=== PATIENT | female | born 1940 | race Caucasian/White ===

== ENCOUNTER → 2023-06-11 07:15 | Day surgery (SDC) | payer MEDICARE, OTHER, SELFPAY ==
[2023-06-11] MEDS: ELIQUIS 5 MG PO (07:55)
[2023-06-11 07:56] VITALS: BMI 24.5
== END ==
LOC: CATH 07:15
PROVIDERS: ATTENDING PHYSICIAN Internal Medicine Cardiovascular Disease; FAMILY PHYSICIAN Family Medicine
DX: I48.91 Unspecified atrial fibrillation (principal); I08.0 Rheumatic disorders of both mitral and aortic valves; I10 Essential (primary) hypertension; E78.00 Pure hypercholesterolemia, unspecified; G20.A1 Parkinson's disease without dyskinesia, without mention of fluctuations; Z79.01 Long term (current) use of anticoagulants
CPT/HCPCS: 92960; 93005

== ENCOUNTER 2023-06-12 23:50 | Emergency (ER) | payer MEDICARE, OTHER, SELFPAY ==
[2023-06-12 23:51] VITALS: BP 164/88
--- NOTE | 2023-06-13 00:35 | ED.GENMED ---
History of Present Illness
General
Chief Complaint: Abdominal Symptoms
Source: patient and spouse
Exam Limitations: none
Time Seen by Provider: 06/13/23 00:20
Travel History
Have you had any contact with someone who has COVID-19?: No
Do you have any symptoms of coronavirus? Fever > 100 degrees, chills, cough, shortness of breath, sore throat, loss of taste or smell, muscle aches, or headache?: No
History of Present Illness
History of Present Illness:
This is a 82 year old female that comes in with c/o nausea and abd pain. States that she has been nauseated for the past month. Sates that it would come and go at first. States that on Sunday it came back and has been constant. States that she cant
eat. Patient was here yesterday and was Cardioverted for atrial fib. States that she believed last they changed her Amiodarone. States that she has vomited once and she just can't take the nausea any more. States that she is occasionally
dizzy. Denies any fever, chills, chest pain, diarrhea, headache, urinary burning.
Past History
Past History
ED Past Medical History: Arrthythmia (Atrial fib), COPD, HTN, Hypercholesterolemia, Valvular disease and Other (Parkinson's, Herniated disc, MVP, Esophageal strictures, UTI, Eczema)
ED Past Surgical History: Gynecological (Hysterectomy), Orthopedic (Right shoulder replacement), Tonsilectomy and Urological (Bladder lift )
Social History
Tobacco: Former smoker
Alcohol: None
Drug: None
Personal:
Living: with family
Review of Systems
Review of Systems
All Other Systems: ROS reviewed and negative except as documented in HPI and ROS
Constitutional: Reports no symptoms; Denies fever or chills
EENT: Reports no symptoms
Respiratory: Reports trouble breathing; Denies cough
ABD/GI: Reports abdominal pain, nausea and vomiting (Once); Denies diarrhea
: Reports no symptoms; Denies dysuria, frequency or urgency
Musculoskeletal: Reports no symptoms
Skin: Reports no symptoms
Neurological: Reports dizzy (occasional); Denies headache
Psychiatric: Reports no symptoms
Phy Exam
General Physical Exam
General Presentation: mild distress
General age: appears stated age
General Skin: warm and dry
General Habitus: elderly
General Mental: alert
General Hydration: dry mucous membranes
ENT Exam
ENT Exam: TM's normal, pharynx normal and neck supple
Eye Exam
Eye Exam: EOMI
Cardiovascular Exam
Cardiovascular Exam: regular rate/rhythm and normal peripheral pulses
Pulmonary Exam
Pulmonary Exam: no respiratory distress, chest non tender, no rhonchi, no wheezing, no cough and other (Very fine crackles at bases)
Gastrointestinal Exam
Gastrointestinal Exam: normal bowel sounds, soft, no organomegaly, no pulsatile mass, non distended and tender (Generalized tenderness with palpation R>L discomfort)
Musculoskeletal Exam
Musculoskeletal Exam: full ROM and edema (Slight +1 pitting edema lower legs)
Skin Exam
Skin Exam: normal color, warm/dry, no rash and no petechia
Psychiatric Exam
Psychiatric Exam: normal mood/affect
Course
Orders/Labs/Results
Orders:
Orders
06/13/23 00:33
Ondansetron Injectable [Zofran] 4 mg IV NOW STA
06/13/23 00:34
0.9% Sodium Chloride 1000 ml [Nss] 1,000 ml IV BOLUS
06/13/23 00:38
Iohexol [Omnipaque] See Protocol PO NOW STA
06/13/23 00:40
CR Chest - 2 Views Urgent
Comment:
Reason For Exam: SOB
06/13/23 01:06
Complete Blood Count/With Diff Urgent
Comprehensive Metabolic Panel Urgent
Lipase Urgent
06/13/23 01:56
Ct Chest/Abd/Pel Angio W/Wo Iv Urgent
Comment: Incorrect order placed by Marguerite mccormick to modify
Reason For Exam: Abnormal Chest x-ray, abd pain, nausea,
06/13/23 03:25
Urinalysis Reflex To Culture Urgent
Date Specimen was Collected: 06/13/23
Time Specimen was Collected: 03:24
Urine Microscopic Reflex Cult Urgent
Abnormal Lab Results
06/13/23 06/13/23
01:06 03:25
RDW 16.1 H %
(11.5-14.5)
Absolute Lymphs (auto) 0.8 L 10^3/uL
(1.2-3.4)
Absolute Monos (auto) 0.8 H 10^3/uL
(0.1-0.6)
Neutrophils % 77.4 H %
(42.2-75.2)
Lymphocytes % 10.5 L %
(20.5-51.1)
Monocytes % 10.1 H %
(1.7-9.3)
Sodium 132 L mmol/L
(135-145)
BUN 24 H mg/dl
(7-17)
Total Protein 5.6 L g/dl
(6.3-8.2)
Leukocyte Esterase Rfl Trace A
(Negative)
Urine Bacteria (Reflex) Few A
(Negative)
06/13/23 01:06
06/13/23 01:06
Sodium slightly low. Dehydration. Total protein low. Urine negative for infection.
Vital Signs
Initial and Last Documented VS:
Initial Vital Signs
Temp Pulse Resp BP Pulse Ox
97.4 F 64 18 164/88 93
06/12/23 23:51 06/12/23 23:51 06/12/23 23:51 06/12/23 23:51 06/12/23 23:51
Last Documented Vital Signs
Temp Pulse Resp BP Pulse Ox
97.4 F 61 19 149/82 92
06/12/23 23:51 06/13/23 03:30 06/13/23 03:30 06/13/23 03:00 06/13/23 03:30
Chain Testing Machine Operator consulted with Physician
Chain Testing Machine Operator consulted with physician?: Yes
Name of Physician Consulted: DR. Srinivasan
MDM/Problems Addressed
Differential Diagnosis Includes:
Diverticulitis, Appendicitis
MDM/Problems Addressed:
This is a 82 year old female that comes in with c/o nausea for the past month and abd pain. States that at first the nausea would come and go. Now since Sunday she has been nauseated and can't eat. States that she has abd pain and SOB. Patient was
cardioverted yesterday for atrial fib.
Will check labs. CT abd/pelvis, chest x-ray and medicate with Zofran for the nausea.
Back into see patient. Explained that her chest x-ray appears abnormal. Concern for widening of the aorta. Will get Chest/Abd/Pelvis CTA. Patient states that her nausea is gone.
CT cont- given suggestion of focus of fat. Suggest comparison with prior studies. Hysterectomy. Suggestion of a small cystocele. Bones and soft tissues: Superior endplate compression deformity at T3, uncertain chronicity but favored to be chronic.
Degenerative changes and mild scoliosis in the thoracolumbar spine. Right shoulder replacement. Mild generalized body wall edema. Small fat-periumbilical hernia.
Back into see patient and . Explained that her CT was negative for anything acute. There is a small fat filled umbilical hernia. There is no bowel obstruction or diverticulitis. Feel that patient nausea may be due to her medications.
Encouraged patient to try and eat before taking her medications. Will give prescription for Zofran and patient to follow up with the family doctor and her [employer]. Patient to return with any concerns.
Chronic conditions affecting care:
History of UTI,
Acute Exacerbation and/or Progression of Chronic Illness:
NA
*Radiology
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 No evidence for aortic dissection, intramural hematoma, or rupture. Moderate atherosclerotic disease. Stenosis of the
celiac artery origin. No evidence for mesenteric artery occlusion. Chest- No evidence for pulmonary ), all reviewed NAD by ED Provider (CT chest cont- No pulmonary embolism. Small pleural effusions. Scattered atelectasis. Abd/pelvis-Colonic
diverticulosis without evidence for acute diverticulitis. No bowel obstruction or free air. No definite findings of bowel ischemia, although presence of enteric contrast limits evaluation. ) and other (CT cont-Hypodense lesions in the liver and
kidneys, imcompletely characterized but most are suggestive of cyst. Mildly complex appearing cystic lesion in the left upper quadrant, possibly arising from the left adrenal gland or pancreatic tail, measuring up to 2.6cm. Could represent a
myelolipoma )
*Pulse Oximetry
Patient hypoxic: no
*EKG
Interpreted by ED Provider?: NA
Rate: EKG- N/A
*Candle Maker Interpretation
Rate: Candle Maker- N/A
*Critical Care Note
Total Time (30-74mins, 75-104mins- exclusive of procedures): Not Applicable
ED Attending Note
-
Portions of this chart may have been created with voice recognition software.� Occasional wrong word or��sound alike� substitutions may have occurred due to the inherent limitations of voice recognition software.
Discharge Plan
Departure
Patient Disposition: Home (Routine Discharge)
Date of Disposition: 06/13/23
Time of Disposition: 03:36
Patient with high blood pressure during this ER visit?: Yes
Condition: Good
Covid-19: Not Applicable
Discharge Problem:
Abdominal pain, Nausea
Instructions: Nausea and Vomiting, Adult (DC), BLOOD PRESSURE
Prescriptions:
New
ondansetron 4 mg tablet,disintegrating
4 mg PO Q8H PRN (Reason: nausea and vomiting) Qty: 7 0RF
No Action
atorvastatin 10 MG tablet
10 mg PO QPM
cholecalciferol (vitamin D3) [Vitamin D3] 400 UNITS tablet
400 unit PO DAILY
multivitamin with folic acid [Tab-A-Alexander] 1 TABLET tablet
1 tab PO DAILY
[place]-3 1 EACH capsule,delayed release(DR/EC)
1 ea PO DAILY
potassium chloride 20 MEQ tablet extended release
20 meq PO DAILY
losartan 50 mg tablet
50 mg PO QPM
carbidopa-levodopa 25-100 mg tablet
1 tab PO TID
Calcium Magnesium 500 mg calcium -250 mg Tablet
2 tab PO DAILY
Anoro Ellipta 62.5-25 mcg/actuation blister with device
1 inh inhalation PRN PRN (Reason: sob)
sertraline 25 mg Tablet
25 mg PO DAILY
metoprolol succinate 50 mg tablet extended release 24 hr
50 mg PO DAILY
methenamine hippurate [Hiprex] 1 gram Tablet
1 g PO BID Qty: 0 0RF
amiodarone 200 mg Tablet
200 mg PO BID
ascorbic acid (vitamin C) [Vitamin C] 500 mg Capsule, Extended Release
500 mg PO DAILY
esomeprazole magnesium [Nexium] 20 mg Capsule,Delayed Release(Dr/Ec)
20 mg PO DAILY
Rx Instructions:
not sure of amt
Eliquis 5 mg tablet
5 mg PO BID
Referrals:
Olegario Coleman DO [Family Provider] - Follow up in 2-3 days
Ryan Alcantar MD [Active] - Follow up in 2-3 days
Activity Restrictions/Additional Instructions:
As discussed. your blood work shows a little dehydration. You have been given IV fluids here,. Your CT was negative for any acute process. You have a small umbilical hernia that is fat filled. There is no bowel obstruction or diverticulitis. Your
nausea is most likely coming from your Medication. Please try and eat before taking your medication to help decrease the nausea. You have had a prescription for Zofran sent to your Pharmacy for any further nausea. Please follow up with the family
doctor and your [employer] for further evaluation. IF YOU HAVE VOMITING, INCREASED OR CHANGING ABD PAIN, OR YOU HAVE ANY OTHER CONCERNS PLEASE RETURN TO THE EMERGENCY ROOM.
Interventions
Interventions:
*Risk Screen - Suicide Last Done: 06/12/23 23:51
*General Assessment Last Done: 06/13/23 01:05
*Neglect/Abuse Screening Last Done: 06/12/23 23:51
ED- Fall Risk Assessment Last Done: 06/13/23 01:05
GA-Ifzecc-Lsaqpbpebj Assessment Last Done: 06/13/23 03:05
[2023-06-13 00:37] VITALS: BMI 24.6
[2023-06-13 00:38] VITALS: BP 160/88
[2023-06-13 01:00] VITALS: BP 163/85
[2023-06-13] MEDS: ZOFRAN 4 MG IV (01:10)
[2023-06-13] MEDS: NSS 1000 IV (01:10)
[2023-06-13] MEDS: OMNIPAQUE 50 ML PO (01:10)
[2023-06-13 01:14] LABS: % Basophils 0.4 % (0-2); % Eosinophils 1.1 % (0-6); % Immature Granulocytes 0.5 % (0-0.5); % Lymphocytes 10.5 % (20.5-51.1); % Monocytes 10.1 % (1.7-9.3); % Neutrophils 77.4 % (42.2-75.2); Absolute Eosinophils 0.1 10^3/uL (0-0.7); Absolute Lymphocytes 0.8 10^3/uL (1.2-3.4); Absolute Monocytes 0.8 10^3/uL (0.1-0.6); Absolute Neutrophils 5.9 10^3/uL (1.4-6.5); Hematocrit 37.9 % (37.0-47.0); Mean Corp Hgb Conc. 34.3 g/dL (33.0-37.0); Mean Corpuscular Hgb 28.4 pg (27.0-31.0); Mean Corpuscular Volume 82.9 fL (81.0-99.0); Mean Platelet Volume 9.4 fL (7.4-10.4); Nucleated Red Blood Cells % 0 %; Platelet Count 207 10^3/uL (130-400); Red Blood Cell Count 4.57 10^6/uL (4.20-5.40); Red Cell Dist. Width 16.1 % (11.5-14.5); White Blood Cell Count 7.6 10^3/uL (4.8-10.8)
[2023-06-13 01:59] LABS: ALT (SGPT) 17 U/L (0-35); AST (SGOT) 21 U/L (14-36); Albumin 3.5 g/dl (3.5-5.0); Alkaline Phosphatase 62 U/L (38-126); Blood Urea Nitrogen 24 mg/dl (7-17); Calcium 9.2 mg/dl (8.4-10.2); Carbon Dioxide 23 mmol/L (22-30); Chloride 103 mmol/L (98-107); Estimated Creatinine Clearance 57 ml/min; Glucose 93 mg/dl (70-99); Lipase 32 U/L (23-300); Potassium 3.8 mmol/L (3.5-5.1); Sodium 132 mmol/L (135-145); Total Bilirubin 1.3 mg/dl (0.2-1.3); Total Protein 5.6 g/dl (6.3-8.2); eGFR > 60.00
[2023-06-13 02:00] VITALS: BP 162/86
[2023-06-13 03:00] VITALS: BP 149/82
[2023-06-13 03:38] LABS: Urine Albumin Negative (Neg - Trace); Urine Bilirubin Negative (Negative); Urine Character Clear (Clear); Urine Color Yellow; Urine Glucose Negative (Negative); Urine Ketone Negative (Negative); Urine Leukocyte Trace (Negative); Urine Nitrite Negative (Negative); Urine Occult Blood Negative (Negative); Urine Urobilinogen Negative (Neg - 1+)
[2023-06-13 03:52] LABS: Urine Squamous Cell >30 /LPF (Few); Urine Urothelial Cell 16-20 /LPF (FEW)
[2023-06-13 03:53] LABS: Urine Bacteria Few (Negative); Urine Red Blood Cell 0-2 /HPF (0-2)
== END 2023-06-13 03:55 | disposition home or self-care (01) ==
LOC: EMR 23:50
PROVIDERS: Clinical Nurse Specialist Family Health; EMERGENCY PHYSICIAN Student in an Organized Health Care Education/Training Program; FAMILY PHYSICIAN Family Medicine
DX: R10.9 Unspecified abdominal pain (principal); R06.02 Shortness of breath; R11.0 Nausea; K42.9 Umbilical hernia without obstruction or gangrene; Z87.891 Personal history of nicotine dependence; Z87.440 Personal history of urinary (tract) infections
CPT/HCPCS: 99285; 96374; 96361; 71046; 71275; 74174; 80053; 81003; 81015; 83690; 85025; Q9967

== ENCOUNTER → 2023-06-18 14:38 | Outpatient (REF) | payer MEDICARE, OTHER, SELFPAY ==
[2023-06-18 15:37] LABS: NT-proBNP 6020 pg/ml
[2023-06-18 16:13] LABS: Blood Urea Nitrogen 21 mg/dl (7-17); Calcium 9.1 mg/dl (8.4-10.2); Carbon Dioxide 32 mmol/L (22-30); Chloride 99 mmol/L (98-107); Glucose 120 mg/dl (70-99); Potassium 3.6 mmol/L (3.5-5.1); Sodium 134 mmol/L (135-145); eGFR > 60.00
== END ==
LOC: RAD 14:38
PROVIDERS: ATTENDING PHYSICIAN Internal Medicine Cardiovascular Disease
DX: I10 Essential (primary) hypertension (principal); J44.9 Chronic obstructive pulmonary disease, unspecified
CPT/HCPCS: 36415; 71046; 80048; 83880

== ENCOUNTER → 2023-07-10 10:58 | Outpatient (REF) | payer MEDICARE, OTHER, SELFPAY | LOC: HWRAD 10:58 | PROVIDERS: ATTENDING PHYSICIAN Internal Medicine Cardiovascular Disease; FAMILY PHYSICIAN Family Medicine | DX: I71.21 Aneurysm of the ascending aorta, without rupture (principal) | CPT/HCPCS: 71275; Q9967 ==